=== PATIENT | female | born 1960 | race American Indian/Alaskan Native ===

== ENCOUNTER 2019-01-28 11:57 | Emergency (ER) | payer OTHER ==
--- NOTE | 2019-01-28 12:34 | Event Note ---
ED Screening Note Date of service: 01/28/19 Time: 12:30 ED Screening Note: 58 y o female presents to Ed for hyperglycemia has been experiencing polydipsia and polyuria This initial assessment/diagnostic orders/clinical plan/treatment(s) is/are subject to change based on patients health status, clinical progression and re- assessment by fellow clinical providers in the ED. Further treatment and workup at subsequent clinical providers discretion. Patient/guardian urged not to elope from the ED as their condition may be serious if not clinically assessed and managed. Initial orders include: labs ,ua
[2019-01-28 13:38] LABS: Basophils # (Auto) 0.2 K/mm3 (0.0-0.1); Basophils % (Auto) 2.3 % (0.0-1.8); Eosinophils % (Auto) 0.2 % (0.0-4.3); Hematocrit 43.2 % (30.3-42.9); Hemoglobin 14.2 gm/dl (10.1-14.3); Lymphocytes # (Auto) 2.1 K/mm3 (1.2-5.4); Lymphocytes % (Auto) 28.8 % (13.4-35.0); Mean Corpuscular HGB Conc 33 % (30-34); Mean Corpuscular Volume 91 fl (79-97); Monocytes # (Auto) 0.5 K/mm3 (0.0-0.8); Monocytes % (Auto) 6.5 % (0.0-7.3); Platelet Count 275 K/mm3 (140-440); Red Blood Count 4.74 M/mm3 (3.65-5.03); Red Cell Distribution Width 13.1 % (13.2-15.2)
[2019-01-28 13:58] LABS: Alanine Aminotransferase 33 units/L (7-56); Albumin 4.6 g/dL (3.9-5); BUN/Creatinine Ratio 14; Blood Urea Nitrogen 13 mg/dL (7-17); Calcium 9.8 mg/dL (8.4-10.2); Hemolysis Index 4
[2019-01-28] MEDS ORDERED: SODIUM CHLORIDE 0.9% 1000 ML 1,000 ML IV ONE (14:12)
--- NOTE | 2019-01-28 14:55 | Emergency Department Report ---
ED General Adult HPI - General Chief complaint: Hyperglycemia Stated complaint: HYPERGLYCEMIA Time Seen by Provider: 01/28/19 12:29 Source: patient Mode of arrival: Ambulatory Limitations: No Limitations - History of Present Illness Initial comments: Patient presents to ED with polyuria, increased thirst, for the past 3 days. no significant past medical history. no fever, chills or night sweats. Severity scale (0 -10): 0 - Related Data Previous Rx's Medication Instructions Recorded Last Taken Type metFORMIN [Glucophage] 500 mg PO BID 30 Days #60 tablet 01/28/19 Unknown Rx Allergies Allergy/AdvReac Type Severity Reaction Status Date / Time No Known Allergies Allergy Unverified 01/28/19 11:58 ED Review of Systems ROS: Stated complaint: HYPERGLYCEMIA Other details as noted in HPI Comment: All other systems reviewed and negative Cardiovascular: denies: chest pain Endocrine: increased thirst, increased urine Genitourinary: denies: urgency, dysuria Neurological: denies: headache, weakness Psychiatric: denies: anxiety, depression ED Past Medical Hx - Past Medical History Previous Medical History?: Yes Hx Hypertension: Yes - Surgical History Past Surgical History?: No - Social History Smoking Status: Never Smoker Substance Use Type: None - Medications Home Medications: Home Medications Medication Instructions Recorded Confirmed Last Taken Type metFORMIN [Glucophage] 500 mg PO BID 30 Days #60 tablet 01/28/19 Unknown Rx ED Physical Exam - General Limitations: No Limitations General appearance: alert, in no apparent distress - Head Head exam: Present: atraumatic, normocephalic - Eye Eye exam: Present: normal appearance, PERRL, EOMI Pupils: Present: normal accommodation - ENT ENT exam: Present: normal exam, normal orophraynx - Neck Neck exam: Present: normal inspection - Respiratory Respiratory exam: Present: normal lung sounds bilaterally - Cardiovascular Cardiovascular Exam: Present: regular rate, normal rhythm - GI/Abdominal GI/Abdominal exam: Present: soft - Extremities Exam Extremities exam: Present: normal inspection - Back Exam Back exam: Present: normal inspection - Neurological Exam Neurological exam: Present: alert, oriented X3, CN II-XII intact - Psychiatric Psychiatric exam: Present: normal affect - Skin Skin exam: Present: warm ED Course Vital Signs 01/28/19 01/28/19 01/28/19 12:30 13:05 13:15 Temperature 99 F Pulse Rate 97 H 76 78 Respiratory 18 12 11 L Rate Blood Pressure 158/86 128/68 Blood Pressure [Right] O2 Sat by Pulse 100 99 98 Oximetry 01/28/19 01/28/19 01/28/19 13:30 13:39 13:45 Temperature 98.1 F Pulse Rate 76 68 71 Respiratory 14 12 12 Rate Blood Pressure 128/68 133/61 Blood Pressure 136/68 [Right] O2 Sat by Pulse 100 100 97 Oximetry 01/28/19 01/28/19 01/28/19 14:00 15:01 15:15 Temperature Pulse Rate 73 73 82 Respiratory 11 L 12 23 Rate Blood Pressure 134/67 134/67 134/67 Blood Pressure [Right] O2 Sat by Pulse 98 100 92 Oximetry 01/28/19 01/28/19 01/28/19 15:30 15:45 16:01 Temperature Pulse Rate 68 63 63 Respiratory 11 L 11 L 12 Rate Blood Pressure 155/75 155/75 155/75 Blood Pressure [Right] O2 Sat by Pulse 98 100 99 Oximetry 01/28/19 01/28/19 16:15 16:31 Temperature Pulse Rate 63 73 Respiratory 14 14 Rate Blood Pressure 155/75 155/75 Blood Pressure [Right] O2 Sat by Pulse 99 100 Oximetry ED Medical Decision Making - Lab Data Result diagrams: 01/28/19 13:00 01/28/19 13:00 - Medical Decision Making Patient was observed in ED, normal saline given, blood glucose dropped to 70, patient will be discharged home with metformin 500 mg twice a day, advised to follow up with PCP. Critical care attestation.: If time is entered above; I have spent that time in minutes in the direct care of this critically ill patient, excluding procedure time. ED Disposition Clinical Impression: Diabetes mellitus Qualifiers: Diabetes mellitus type: type 2 Diabetes mellitus long-term insulin use: without long-term use Diabetes mellitus complication status: with hyperglycemia Qualified Code(s): E11.65 - Type 2 diabetes mellitus with hyperglycemia Disposition: -01 TO HOME OR SELFCARE Is pt being admited?: No Does the pt Need Aspirin: No Condition: Stable Instructions: Diabetes Mellitus Type 2 in Adults (ED) Prescriptions: metFORMIN [Glucophage] 500 mg PO BID 30 Days #60 tablet Referrals: MELANIE BANKS MD [Primary Care Provider] - 3-5 Days
[2019-01-28] MEDS ORDERED: INSULIN REGULAR, HUMAN 100 UNITS/1 ML IV ONE (15:23)
[2019-01-28 15:32] LABS: Bilirubin,Urine NEG (Negative); Blood,Urine NEG (Negative); Color,Urine Straw (Yellow); Mucus,Urine FEW /HPF; Protein,Urine <15 mg/dL mg/dL (Negative); RBC,Urine < 1.0 /HPF (0.0-6.0); Urobilinogen,Urine < 2.0 mg/dL (<2.0)
[2019-01-28 17:25] VITALS: BP 147/75
== END 2019-01-28 17:05 | disposition home or self-care (01) ==
LOC: ED 11:57
DX: E11.9 Type 2 diabetes mellitus without complications (principal); I10 Essential (primary) hypertension; Z79.84 Long term (current) use of oral hypoglycemic drugs
CPT/HCPCS: 36415; 80053; 81001; 82805; 82962; 83036; 85025; 96360; 99283; J7030